=== PATIENT | female | born 1965 | race Caucasian/White ===

== ENCOUNTER → 2019-08-06 | Day surgery (SDC) | payer OTHER ==
[~2019-08-06] MED LIST: PROTONIX40 MG; ZANTAC150 MG
== END | disposition home or self-care (01) ==
LOC: ADM 08-04 07:00 → CIR.AMB 05:10
DX: N84.0 Polyp of corpus uteri (principal)

== ENCOUNTER 2021-02-09 05:45 | Day surgery (SDC) | payer OTHER | END 2021-02-09 14:30 | disposition home or self-care (01) | LOC: CIR.AMB 05:45 → EDBD 07:45 → CIR.AMB 14:30 | PROVIDERS: ATTEND Obstetrics & Gynecology Maternal & Fetal Medicine | DX: N84.0 Polyp of corpus uteri (principal); Z20.822 Contact with and (suspected) exposure to COVID-19 ==